=== PATIENT | female | born 1975 | race Caucasian/White ===

== ENCOUNTER 2017-10-07 10:01 | Inpatient (IN) | payer OTHER ==
[~2017-10-07] VITALS: Ht 170.2 cm; Wt 61.2 kg
[2017-10-07 10:46] LABS: BASOPHIL (%) 0.2 % (0-1); EOSINOPHIL (%) 1.9 % (0-5); EOSINOPHIL COUNT 0.3 K/uL (0-0.3); HEMATOCRIT 38.3 % (36.0-46.0); HEMOGLOBIN 12.7 G/DL (11.9-15.5); IMMATURE GRANULOCYTE (%) 0.4 % (0.0-0.7); LYMPHOCYTE (%) 10.4 % (15-42); LYMPHOCYTE COUNT 1.7 K/uL (1.0-2.8); MCH 29.4 PG (29.0-34.0); MCHC 33.2 G/DL (30.0-36.0); MCV 88.7 FL (83-99); MONOCYTE (%) 4.9 % (3-12); MONOCYTE COUNT 0.8 K/uL (0-0.8); NEUTROPHIL (%) 82.2 % (45-76); NEUTROPHIL COUNT 13.4 K/uL (1.8-6.4); PLATELET COUNT 244 K/uL (156-360); RBC DIS.WIDTH-CV 14.5 % (11.8-14.6); RBC DIS.WIDTH-SD 47.3 % (39-53); RED BLOOD COUNT 4.32 M/uL (3.80-5.20); WHITE BLOOD COUNT 16.3 K/uL (4.1-10.2)
[2017-10-07 11:29] LABS: CHLORIDE 103 MEQ/L (99-109); CREATININE 0.9 MG/DL (0.6-1.3); GFR ESTIMATE (CALCULATED) > 59 mL/min/; GLUCOSE 113 mg/dL (70-99); POTASSIUM 3.8 MEQ/L (3.7-5.4); SERUM ETHYL ALCOHOL < 10 mg/dL; SODIUM 133 MEQ/L (136-147); UREA NITROGEN (BUN) 9 mg/dL (9-23)
[2017-10-07] MEDS ORDERED: AMPHETAMINE SAL30 MG PO (16:09)
[2017-10-07] MEDS ORDERED: BUPRENORPHINE HC8 MG SL (16:17)
[2017-10-07 16:47] LABS: AMPHETAMINE NEGATIVE (500 ng/mL); BARBITURATES NEGATIVE (200 ng/mL); BENZODIAZEPINES NEGATIVE (150 ng/mL); BUPRENORPHINE PRESUMPTIVE POSITIVE (10 ng/mL); COCAINE PRESUMPTIVE POSITIVE (150 ng/mL); METHADONE NEGATIVE (200 ng/mL); METHAMPHETAMINE NEGATIVE (500 ng/mL); OPIATES (MORPHINE) NEGATIVE (100 ng/mL); OXYCODONE NEGATIVE (100 ng/mL); PHENCYCLIDINE NEGATIVE (25 ng/mL); PROPOXYPHENE NEGATIVE (300 ng/mL); THC CANNABINOIDS NEGATIVE (50 ng/mL); TRICYCLIC ANTIDEPRESSANTS NEGATIVE (300 ng/mL)
[2017-10-08 07:29] LABS: BASOPHIL (%) 0.3 % (0-1); EOSINOPHIL (%) 4.2 % (0-5); EOSINOPHIL COUNT 0.4 K/uL (0-0.3); HEMATOCRIT 31.8 % (36.0-46.0); IMMATURE GRANULOCYTE (%) 0.3 % (0.0-0.7); LYMPHOCYTE (%) 17.3 % (15-42); LYMPHOCYTE COUNT 1.7 K/uL (1.0-2.8); MCH 29.2 PG (29.0-34.0); MCHC 32.4 G/DL (30.0-36.0); MCV 90.1 FL (83-99); MONOCYTE (%) 5.7 % (3-12); MONOCYTE COUNT 0.6 K/uL (0-0.8); NEUTROPHIL (%) 72.2 % (45-76); NEUTROPHIL COUNT 7.1 K/uL (1.8-6.4); PLATELET COUNT 204 K/uL (156-360); RBC DIS.WIDTH-CV 14.9 % (11.8-14.6); RBC DIS.WIDTH-SD 49.2 % (39-53); RED BLOOD COUNT 3.53 M/uL (3.80-5.20); WHITE BLOOD COUNT 9.8 K/uL (4.1-10.2)
[2017-10-08 07:53] LABS: HEMOGLOBIN 10.3 G/DL (11.9-15.5)
[2017-10-08 07:58] LABS: CHLORIDE 107 MEQ/L (99-109); CREATININE 0.7 MG/DL (0.6-1.3); GFR ESTIMATE (CALCULATED) > 59 mL/min/; GLUCOSE 100 mg/dL (70-99); POTASSIUM 3.4 MEQ/L (3.7-5.4); SODIUM 136 MEQ/L (136-147); UREA NITROGEN (BUN) 5 mg/dL (9-23)
[2017-10-08 10:43] LABS: HEPATITIS B SURFACE ANTIGEN Nonreactive
[2017-10-08 10:46] LABS: HEPATITIS C ANTIBODY REACTIVE
[2017-10-08 14:53] VITALS: BP 109/71
[2017-10-08 19:51] VITALS: BP 113/72
[2017-10-08 23:59] VITALS: BP 105/63
[2017-10-09 04:22] VITALS: BP 110/69
[2017-10-09 08:21] VITALS: BP 111/59
[2017-10-09 11:19] LABS: BASOPHIL (%) 0.3 % (0-1); EOSINOPHIL (%) 2.2 % (0-5); EOSINOPHIL COUNT 0.2 K/uL (0-0.3); HEMATOCRIT 29.6 % (36.0-46.0); HEMOGLOBIN 9.4 G/DL (11.9-15.5); IMMATURE GRANULOCYTE (%) 0.4 % (0.0-0.7); LYMPHOCYTE (%) 22.8 % (15-42); LYMPHOCYTE COUNT 2.1 K/uL (1.0-2.8); MCH 28.8 PG (29.0-34.0); MCHC 31.8 G/DL (30.0-36.0); MCV 90.8 FL (83-99); MONOCYTE (%) 3.9 % (3-12); MONOCYTE COUNT 0.4 K/uL (0-0.8); NEUTROPHIL (%) 70.4 % (45-76); NEUTROPHIL COUNT 6.4 K/uL (1.8-6.4); PLATELET COUNT 213 K/uL (156-360); RED BLOOD COUNT 3.26 M/uL (3.80-5.20); WHITE BLOOD COUNT 9.1 K/uL (4.1-10.2)
[2017-10-09 11:21] VITALS: BP 104/64
[2017-10-09 11:43] LABS: CHLORIDE 111 MEQ/L (99-109); CREATININE 0.6 MG/DL (0.6-1.3); GFR ESTIMATE (CALCULATED) > 59 mL/min/; GLUCOSE 127 mg/dL (70-99); POTASSIUM 3.6 MEQ/L (3.7-5.4); SODIUM 140 MEQ/L (136-147); UREA NITROGEN (BUN) 9 mg/dL (9-23)
[2017-10-09 12:04] LABS: HIV-1/2 AB/AG COMBO Nonreactive
[2017-10-09 14:57] VITALS: BP 109/68
[2017-10-09 20:47] VITALS: BP 116/68
[2017-10-10 04:22] VITALS: BP 110/67
[2017-10-10 09:00] VITALS: BP 118/74
[2017-10-10] MEDS ORDERED: NICOTINE PATCH1 EAC2 TD (12:05)
[2017-10-10] MEDS ORDERED: FAMOTIDINE20 MG PO (12:09)
[2017-10-10] MEDS ORDERED: MOTRIN600 MG PO (12:09)
[2017-10-10] MEDS ORDERED: BACTRIM,SEPT1 TABLET PO (12:11)
== END 2017-10-10 15:14 | disposition home or self-care (01) | DRG 603 ==
LOC: EME 10:01 → EDOF 16:27 → 2SOUTH 16:27 → 4EAST 16:27 → ENRESERV 16:38 → EDOF 10-08 10:31 → ENRESERV 10-08 10:40 → 2SOUTH 10-08 12:33 → ENRESERV 10-08 13:29 → 4EAST 10-08 14:40 → ENPENDDIS 10-10 → 4EAST 10-10 15:14
PROVIDERS: Emergency Medicine; Hospitalist; Internal Medicine Infectious Disease; Student in an Organized Health Care Education/Training Program
PROC: 0J9100Z Drainage of Face Subcutaneous Tissue and Fascia with Drainage Device, Open Approach (ICD-10-PCS; principal; 2017-10-08)
DX: L03.211 Cellulitis of face (principal); F19.10 Other psychoactive substance abuse, uncomplicated; F12.90 Cannabis use, unspecified, uncomplicated; M27.2 Inflammatory conditions of jaws; L02.01 Cutaneous abscess of face; Z86.14 Personal history of Methicillin resistant Staphylococcus aureus infection; B95.62 Methicillin resistant Staphylococcus aureus infection as the cause of diseases classified elsewhere; B18.2 Chronic viral hepatitis C; F17.200 Nicotine dependence, unspecified, uncomplicated; Z16.29 Resistance to other single specified antibiotic
CPT/HCPCS: 70487; 70490; 70491; 80048; 80202; 82948; 83605; 84999; 85025; 86803; 87040; 87070; 87075; 87077; 87147; 87186; 87205; 87340; 87389; 90686; C1751; C1753; G0480; J0571; J1100; J1885; J2270; J2405; J3010; J3370; J7030